=== PATIENT | female | born 1955 | race Caucasian/White ===

== ENCOUNTER → 2022-10-17 13:48 | Outpatient (BNVA) | payer OTHER, SELFPAY | PROVIDERS: Family Provider Family Medicine; PCP Family Medicine; Visit Provider Family Medicine | DX: E78.5 Hyperlipidemia, unspecified (principal); I10 Essential (primary) hypertension; M15.9 Polyosteoarthritis, unspecified; E11.9 Type 2 diabetes mellitus without complications; M19.90 Unspecified osteoarthritis, unspecified site; Z00.00 Encounter for general adult medical examination without abnormal findings | CPT/HCPCS: 80053; 80061; 83036; 85025; 85651; 86140; 86160; 86162; 86235; 86255; 86376; 86431 ==

== ENCOUNTER → 2023-01-01 13:43 | Outpatient (BNVA) | payer OTHER, SELFPAY | PROVIDERS: Family Provider Family Medicine; PCP Family Medicine; Visit Provider Family Medicine | DX: D64.9 Anemia, unspecified (principal) | CPT/HCPCS: 82270 ==

== ENCOUNTER → 2023-11-29 11:46 | Outpatient (BNVA) | payer OTHER, SELFPAY | PROVIDERS: Family Provider Family Medicine; PCP Family Medicine; Visit Provider Family Medicine | DX: I10 Essential (primary) hypertension (principal); E78.5 Hyperlipidemia, unspecified; E11.9 Type 2 diabetes mellitus without complications; N28.9 Disorder of kidney and ureter, unspecified; D64.9 Anemia, unspecified; M19.90 Unspecified osteoarthritis, unspecified site; Z13.6 Encounter for screening for cardiovascular disorders | CPT/HCPCS: 80053; 80061; 82607; 83036; 83721; 85025 ==

== ENCOUNTER → 2024-03-04 09:20 | Outpatient (BNVA) | payer OTHER, SELFPAY | PROVIDERS: Family Provider Family Medicine; PCP Family Medicine; Visit Provider Family Medicine | DX: E11.9 Type 2 diabetes mellitus without complications (principal); E78.5 Hyperlipidemia, unspecified; N28.9 Disorder of kidney and ureter, unspecified | CPT/HCPCS: 80053; 80061; 83036 ==

== ENCOUNTER → 2024-06-03 09:24 | Outpatient (BNVA) | payer OTHER, SELFPAY | PROVIDERS: Family Provider Family Medicine; PCP Family Medicine; Visit Provider Family Medicine | DX: E11.9 Type 2 diabetes mellitus without complications (principal); E78.5 Hyperlipidemia, unspecified; N28.9 Disorder of kidney and ureter, unspecified | CPT/HCPCS: 80053; 83036 ==

== ENCOUNTER → 2024-09-15 08:29 | Outpatient (BNVA) | payer MEDICARE, SELFPAY | PROVIDERS: Family Provider Family Medicine; PCP Family Medicine; Visit Provider Family Medicine | DX: I10 Essential (primary) hypertension (principal); E78.5 Hyperlipidemia, unspecified; E11.9 Type 2 diabetes mellitus without complications; N28.9 Disorder of kidney and ureter, unspecified; D64.9 Anemia, unspecified | CPT/HCPCS: 80053; 80061; 83036; 83721; 85025 ==

== ENCOUNTER → 2024-10-07 08:54 | Outpatient (BNVA) | payer MEDICARE, SELFPAY | PROVIDERS: PCP Family Medicine; Visit Provider Podiatrist Foot & Ankle Surgery | DX: S82.52XA Displaced fracture of medial malleolus of left tibia, initial encounter for closed fracture (principal); E11.42 Type 2 diabetes mellitus with diabetic polyneuropathy; Z79.4 Long term (current) use of insulin; X58.XXXA Exposure to other specified factors, initial encounter; Z79.84 Long term (current) use of oral hypoglycemic drugs | CPT/HCPCS: 99204 ==

== ENCOUNTER 2024-10-10 08:20 | Day surgery (SDC) | payer MEDICARE, SELFPAY ==
[2024-10-10] VITALS (10 sets, daily range): BP systolic 142–169; BP diastolic 81–88; PULSE 74–90; RESP 16–20; TEMP 36.1–36.6; O2SAT 91–98; BMI 28.3
--- NOTE | 2024-10-10 | XR_ITS ---
WS: [id number] Left ankle, C-arm fluoroscopy views, 10/10/2024 Clinical Data: ORIF LEFT ANKLE Comparison: Left ankle, 10/02/2024 Findings: Dr. Washburn inserted a pin into the medial malleolus of the left ankle. XR/XR ankle LT 2V [id number] Impression: Internal fixation of medial malleolar fracture of the left ankle.
[2024-10-10 09:00] LABS: Glucose Point of Care 252 mg/dL (70-110)
[2024-10-10] MEDS: sodium chloride 0.9% 1,000 ML 30 ML IV (09:00)
--- NOTE | 2024-10-10 09:16 | ANES.PREANE2 ---
Pre-Anesthetic Assessment Height/Weight: Height 1.65 m Weight 77.111 kg Temp Pulse Resp BP Pulse Ox O2 Del Method 97.8 F 90 16 163/86 94 Room Air 10/10/24 08:46 10/10/24 08:46 10/10/24 08:46 10/10/24 08:46 10/10/24 08:46 10/10/24 08:46 Preop Diagnosis: Left medial malleolus fracture Operation Date: 10/10/24 10:05 Proposed Procedures p ORIF Ankle ORIF Medial Malleolus(Left) - Medardo Washburn DPM Last intake: Intake Last Liquid Date 10/09/24 Last Liquid Time 20:00 Last Solid Date 10/09/24 Last Solid Time 23:00 Social No alcohol and No tobacco Exam alert, oriented x 3, clear to auscultation bilaterally and regular rate & rhythm Airway Submandibular: within normal limits Cervical ROM: within normal limits Dentition: chipped (Missing) CV/HEM Hypertension GI Gastroesophageal Reflux Disease (well controlled ) Metabolic Diabetes Mellitus and Hyperlipidemia Anesthetic Plan ASA status: 3 Anesthesia: General (Popliteal Block ) Medications/Allergies Home Medications ?Medication ?Instructions ?Recorded ?Confirmed ?Last Taken ?Type DME: walker #1 ea 07/21/22 10/07/24 10/09/24 20:00 Rx Wheeled walker #1 ea 07/21/22 10/07/24 10/09/24 20:00 Rx lisinopril 20 mg tablet 20 mg PO DAILY #90 tabs 12/28/23 10/09/24 10/09/24 20:00 Rx atorvastatin 20 mg tablet See Rx Instructions .Route 03/25/24 10/09/24 10/09/24 20:00 Rx .COMPLEX #90 tabs one touch ultra test strips #5,000 ea 04/17/24 10/07/24 10/09/24 20:00 Rx hydrochlorothiazide 50 mg tablet 50 mg PO DAILY for bp #90 tabs 05/20/24 10/09/24 10/09/24 20:00 Rx omeprazole 20 mg capsule,delayed 20 mg PO DAILY for stomach #90 caps 06/02/24 10/09/24 10/09/24 20:00 Rx release blood-glucose meter,continuous #1 ea 09/15/24 10/07/24 10/09/24 20:00 Rx (Dexcom G7 [facility]) metformin 1,000 mg tablet 1,000 mg PO BID #180 tabs 09/15/24 10/09/24 10/09/24 20:00 Rx blood-glucose sensor (Dexcom G7 #1 ea 09/23/24 10/07/24 10/09/24 20:00 Rx Sensor device) hydrocodone 5 mg-acetaminophen 325 1 tab PO Q6H PRN Pain 10/07/24 10/09/24 10/09/24 20:00 History mg tablet Allergies Allergy/AdvReac Type Severity Reaction Status Date / Time No Known Allergies Allergy Verified 10/10/24 08:43 Current Medications Generic Name Dose Route Start Last Admin Trade Name Freq PRN Reason Stop Dose Admin Sodium Chloride 1,000 mls @ 30 mls/hr 10/10/24 08:30 10/10/24 09:00 Sodium Chloride 0.9% IV 10/11/24 08:29 30 mls/hr .Q24H CEDRICK Administration PFSH Anesthesia Medical History GERD (gastroesophageal reflux disease) Hyperlipidemia Essential hypertension Type 2 diabetes mellitus without complications Generalized osteoarthritis Social History Smoking and tobacco/nicotine status: former use of tobacco/nicotine Household members: children Current occupational status: retired Data Anesthesia Cardiac Studies: No Data to Display
--- NOTE | 2024-10-10 10:33 | W.PM.OPSUD ---
Surgery/Procedure H&P Update DATE OF PROCEDURE: October 10, 2024 DATE H&P PERFORMED: 10/07/24 H&P UPDATE INFORMATION: I have reviewed H&P completed within last 30 days, I have examined patient prior to procedure, No changes to prior documentation and Risks and benefits of the procedure reviewed PREOP DIAGNOSIS: Left medial malleolus fracture PLANNED PROCEDURE: Operation Date: 10/10/24 10:05 Proposed Procedures p ORIF Ankle ORIF Medial Malleolus(Left) - Medardo Washburn DPM
--- NOTE | 2024-10-10 10:50 | ANES.PROC ---
Anesthesia Procedures Procedure/Date: 10/10/24 Nerve Block ^: Nerve Block 1: Main Anesthesia: general anesthesia Time Out Performed: Yes Consent: requested by attending/covering physician and risks and benefits reviewed Nerve block location: adductor canal (left leg) Anesthesia monitors applied: pulse oximetry and BP cuff Nerve block position: supine Anesthetic Used: ropivicaine 0.5% Amount of anesthesia used (mL): 20 Ultrasound used to: recognize landmarks and visualize and ID femerol nerve Nerve Stimulator Used?: No Interscalene/Femoral BLK: 4 stimuplex 21 g needle used for position and inplane approach and visualize local anesthetic spread Injection: neg aspiration of heme and paresthesia +/- Patient Tolerated Procedure: well and no complications Complications: none
[2024-10-10] MEDS: ceFAZolin 2,000 mg SDV 2000 MG IVP (10:52)
--- NOTE | 2024-10-10 11:32 | P.BOP_ITS ---
Date of Procedure: 09/14/23 Surgeon: Medardo Washburn DPM County Assessor(s): Varinder Procedure(s) performed: Open reduction internal fixation left medial malleolus Findings of the procedure(s): None Estimated blood loss: 2 mL Specimen(s) removed: No specimens Post-operative diagnosis: Left medial malleolus fracture
--- NOTE | 2024-10-10 11:33 | PM.OP ---
Operative Report Date of procedure: October 10, 2024 Pre-op diagnosis: Closed displaced fracture of medial malleolus of left tibia, initial encounter S82.52XA Post-op diagnosis: Closed displaced fracture of medial malleolus of left tibia, initial encounter S82.52XA Procedure done: Open reduction internal fixation left medial malleolus. CPT code 38972 Implants: Arthrex FT screw 4.0 mm x 2 both 50 mm in length Specimens removed/disposition: No specimens Pathology: No pathology Surgeon: Medardo Washburn DPM Cardiology Clinical Nurse Specialist: Varinder Estimated blood loss: 2 13 IV fluids: See intraoperative documentation. 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 Plan Assessment and Plan 69-year-old female with a history of hyperglycemia presenting with an acute fracture of the left ankle. The fracture resulted from a slip incident, requiring surgical management due to its location. Elevated blood sugars increase healing risks, necessitating careful consideration of surgical approach. The decision to perform a less invasive surgical approach for the acute left medial malleolus fracture is driven by the need to minimize surgical risks associated with the patient's elevated blood sugars. Would opt for 2 screw fixation versus hook plate to minimize incision size. Given the patient's poor glycemic control, characterized by a high Hemoglobin A1c level, a conservative surgical method is selected to facilitate quicker recovery and reduce potential complications arising from hyperglycemia. The intervention focuses on restoring structural integrity to the joint, thereby preventing future complications. Blood sugar management remains a critical component of the overall treatment plan, with ongoing monitoring and modifications aimed at optimizing conditions for wound healing. I reviewed at length with the patient, the risks, potential complications, benefits, alternatives, expectations, and typical outcomes associated with the surgery. The risks and potential complications were explained in detail, including but not limited to infection, wound dehiscence or soft tissue complications, bleeding and hematoma, chronic edema, neuritis or nerve damage producing numbness or chronic pain, CRPS, failure to relieve pain or worsening pain, thick / painful / unsightly scar, limited motion / stiffness, malposition, delayed union, malunion, or nonunion, fracture, reaction to implants, anesthetic complications, venous thromboembolism, and deformity recurrence. I discussed the notion of no regrets with the patient as it pertains to complications and outcomes. The patient seemed to understand the nature of the proposed care and required convalescence. They asked appropriate questions, answered to their satisfaction. They are aware no guarantees can be made as to a satisfactory outcome and they understand there may be other possible unforeseen complications or outcomes not listed here that will be treated accordingly if they arise. There were no written or implied guarantees given to the patient. They gave informed consent to proceed. Procedure: Under mild sedation the patient was brought to the operating room and remained on the gurney in supine position. A timeout was performed. Anesthesia was then administered by the anesthesia service. Of note a left popliteal block was performed preoperatively per anesthesia services. A well-padded pneumatic tourniquet was applied to the patient's left high calf. The left lower extremity was scrubbed, prepped and draped utilizing normal aseptic technique. Left foot and ankle were then exanguinated with an Esmarch bandage and the tourniquet was inflated to 250 mmHg. Attention was directed to the medial aspect of the left ankle where utilizing mini C arm fluoroscopy a incision was made at the medial ankle after having palpated and visualized (fluoroscopy) the medial malleolus, next utilizing standard AO technique after having reduced the medial malleolus fixation was achieved utilizing Arthrex 4.0 mm FT compression screws 50 mm in length with excellent bony apposition and compression noted utilizing intraoperative C arm in the AP, oblique and lateral views the left ankle mortise was congruent and hardware did not violate the left ankle joint and was noted to be excellent in all 3 planes in the near parallel fashion. Smooth range of motion was appreciated of the left ankle intraoperatively with greater than 5 degrees of dorsiflexion and 35 degrees of plantarflexion without crepitus. Temporary fixation was removed. The incision was irrigated with saline solution and closed with 4-0 nylon. Incision was dressed with Xeroform, 4 x 4 gauze, Kerlix and 4 inch Jeremy wrap followed by application of a cam boot to the left lower extremity. The tourniquet was deflated and a prompt hyperemic response is noted to the distal digits of the left foot. Patient tolerated the procedure and anesthesia well and was transferred to the PACU with vital signs stable and vascular status intact. Was given at home care instructions and scheduled follow-up.
--- NOTE | 2024-10-10 11:39 | P.ANESPOST_ITS ---
Inpatient post-anesthesia follow up: Vital signs: Temperature 97.8 F Pulse Rate 90 Respiratory Rate 16 Blood Pressure 163/86 Pulse Oximetry 94 Oxygen Delivery Me thod Room Air Oxygen Flow Rate Fraction of Inspir ed Oxygen Hydration adequate: Yes Nausea and vomiting: No Pain level: Con trolled Mental status: Baseline
[2024-10-10] MEDS: HYDROcodone-acetaminophen 7.5-325 mg Tablet 1 TAB PO (12:35)
== END 2024-10-10 12:48 | disposition home or self-care (01) ==
PROVIDERS: PCP Family Medicine; Visit Provider Podiatrist Foot & Ankle Surgery
PROC: (CPT 27766; principal; 2024-10-10 09:55)
DX: S82.52XA Displaced fracture of medial malleolus of left tibia, initial encounter for closed fracture (principal); E11.42 Type 2 diabetes mellitus with diabetic polyneuropathy; K21.9 Gastro-esophageal reflux disease without esophagitis; E78.5 Hyperlipidemia, unspecified; I10 Essential (primary) hypertension; Z79.899 Other long term (current) drug therapy; Z79.84 Long term (current) use of oral hypoglycemic drugs; Z87.891 Personal history of nicotine dependence; Z79.4 Long term (current) use of insulin; W01.0XXA Fall on same level from slipping, tripping and stumbling without subsequent striking against object, initial encounter
CPT/HCPCS: 27766; 36416; 73600; 76000; 82962; C1713; J0690; J2250; J2704; J2795; J3010; J7030; J9999

== ENCOUNTER → 2024-10-23 08:44 | Outpatient (BNVA) | payer MEDICARE, SELFPAY | PROVIDERS: PCP Family Medicine; Visit Provider Podiatrist Foot & Ankle Surgery | DX: S82.55XD Nondisplaced fracture of medial malleolus of left tibia, subsequent encounter for closed fracture with routine healing (principal); X58.XXXD Exposure to other specified factors, subsequent encounter | CPT/HCPCS: 73610; 99024 ==

== ENCOUNTER → 2024-11-20 12:48 | Outpatient (BNVA) | payer MEDICARE, SELFPAY | PROVIDERS: PCP Family Medicine; Visit Provider Podiatrist Foot & Ankle Surgery | DX: S82.55XD Nondisplaced fracture of medial malleolus of left tibia, subsequent encounter for closed fracture with routine healing (principal); X58.XXXD Exposure to other specified factors, subsequent encounter | CPT/HCPCS: 73610 ==

== ENCOUNTER 2024-11-20 13:17 | Outpatient (CLI) | payer MEDICARE, SELFPAY | END 2024-11-20 13:18 | disposition home or self-care (01) | LOC: SPT 13:18 | PROVIDERS: PCP Family Medicine; Visit Provider Podiatrist Foot & Ankle Surgery | DX: Z46.89 Encounter for fitting and adjustment of other specified devices (principal); S82.52XD Displaced fracture of medial malleolus of left tibia, subsequent encounter for closed fracture with routine healing; X58.XXXD Exposure to other specified factors, subsequent encounter | CPT/HCPCS: L1902 ==

== ENCOUNTER → 2024-11-25 08:22 | Outpatient (BNVA) | payer MEDICARE, SELFPAY | PROVIDERS: PCP Family Medicine; Visit Provider Family Medicine | DX: E11.9 Type 2 diabetes mellitus without complications (principal); N28.9 Disorder of kidney and ureter, unspecified | CPT/HCPCS: 80053; 83036 ==

== ENCOUNTER → 2024-12-16 12:22 | Outpatient (BNVA) | payer MEDICARE, SELFPAY | PROVIDERS: PCP Family Medicine; Referring Provider Family Medicine; Visit Provider Internal Medicine | DX: E11.9 Type 2 diabetes mellitus without complications (principal); E78.5 Hyperlipidemia, unspecified | CPT/HCPCS: 36415; 80048 ==

== ENCOUNTER → 2024-12-18 14:03 | Outpatient (BNVA) | payer MEDICARE, SELFPAY | PROVIDERS: PCP Family Medicine; Visit Provider Podiatrist Foot & Ankle Surgery | DX: M25.562 Pain in left knee (principal); S82.55XD Nondisplaced fracture of medial malleolus of left tibia, subsequent encounter for closed fracture with routine healing; X58.XXXD Exposure to other specified factors, subsequent encounter | CPT/HCPCS: 73610; 99024 ==

== ENCOUNTER → 2024-12-26 09:08 | Outpatient (BNVA) | payer MEDICARE, SELFPAY | PROVIDERS: PCP Family Medicine; Visit Provider Nurse Practitioner | DX: M17.12 Unilateral primary osteoarthritis, left knee (principal); Z46.89 Encounter for fitting and adjustment of other specified devices; M25.562 Pain in left knee | CPT/HCPCS: 73560; 73565 ==

== ENCOUNTER 2024-12-26 11:03 | Outpatient (CLI) | payer MEDICARE, SELFPAY | END 2024-12-26 11:04 | disposition home or self-care (01) | LOC: SPT 11:04 | PROVIDERS: PCP Family Medicine; Visit Provider Nurse Practitioner | DX: Z46.89 Encounter for fitting and adjustment of other specified devices (principal); M25.562 Pain in left knee | CPT/HCPCS: 20610; J1100; J2795; J3301; J9999; L1851 ==

== ENCOUNTER → 2025-02-16 09:18 | Outpatient (BNVA) | payer MEDICARE, SELFPAY | PROVIDERS: PCP Family Medicine; Visit Provider Family Medicine | DX: I10 Essential (primary) hypertension (principal); E78.5 Hyperlipidemia, unspecified; E11.9 Type 2 diabetes mellitus without complications; N28.9 Disorder of kidney and ureter, unspecified; D64.9 Anemia, unspecified | CPT/HCPCS: 80053; 80061; 83036; 85025 ==

== ENCOUNTER → 2025-03-17 10:43 | Outpatient (BNVA) | payer MEDICARE, SELFPAY | PROVIDERS: PCP Family Medicine; Referring Provider Family Medicine; Visit Provider Internal Medicine | DX: E11.9 Type 2 diabetes mellitus without complications (principal) | CPT/HCPCS: 99214 ==

== ENCOUNTER → 2025-03-30 08:47 | Outpatient (BNVA) | payer MEDICARE, SELFPAY | PROVIDERS: PCP Family Medicine; Visit Provider Nurse Practitioner | DX: M17.12 Unilateral primary osteoarthritis, left knee (principal) | CPT/HCPCS: 99213 ==

== ENCOUNTER 2025-04-27 14:13 | Outpatient (CLI) | payer MEDICARE, SELFPAY ==
--- NOTE | 2025-04-27 14:16 | MM_ITS ---
WS: [id number] BILATERAL 3D TOMOSYNTHESIS DIGITAL SCREENING MAMMOGRAPHY WITH CAD CLINICAL INFORMATION: SCREENING HISTORY: Screening mammogram. No current complaints. COMPARISON: 2019 TECHNIQUE: Bilateral CC and MLO views. FINDINGS: Scattered fibroglandular densities bilaterally. No suspicious focal mass, asymmetry, calcifications, or architectural distortion. No evidence of malignancy. Vascular calcification. Benign calcification RIGHT breast MM/MM scr BI tomosynthesis [id number] IMPRESSION: DENSITY: There are scattered areas of fibroglandular density. BI-RADS: 2 - Benign. FOLLOW UP: 1 Year Follow-up Recommend return to annual screening mammography.
--- NOTE | 2025-04-27 15:00 | XR_ITS ---
WS: [id number] DEXA (DUAL ENERGY X-RAY ABSORPTIOMETRY) Bone mineral density was performed using a [employer] machine. HISTORY: fracture of tibia COMPARISON: None available. Lumbar spine BMD (L1-L4): 1.057 g/cm2 T score: -1.0 Z score: 0.3 Total hip BMD: Left: 0.591 g/cm2. T score: -3.3 Z score: -2.1 Right: 0.819 g/cm2. T score: -1.5 Z score: -0.3 10 year probability of a major osteoporotic fracture is 27.4%. XR/XR DEXA axial skeleton* 13852 IMPRESSION: OSTEOPOROSIS.
== END 2025-04-27 14:14 | disposition home or self-care (01) ==
LOC: RAD 14:14
PROVIDERS: PCP Family Medicine; Visit Provider Family Medicine
DX: S82.202A Unspecified fracture of shaft of left tibia, initial encounter for closed fracture (principal); M19.90 Unspecified osteoarthritis, unspecified site; E11.9 Type 2 diabetes mellitus without complications; N28.9 Disorder of kidney and ureter, unspecified; D64.9 Anemia, unspecified; M81.0 Age-related osteoporosis without current pathological fracture; R92.323 Mammographic fibroglandular density, bilateral breasts; R92.1 Mammographic calcification found on diagnostic imaging of breast; X58.XXXA Exposure to other specified factors, initial encounter
CPT/HCPCS: 77063; 77067; 77080